=== PATIENT | female | born 1975 | race Hispanic/Latino ===

== ENCOUNTER 2018-09-22 06:13 | Emergency (ER) | payer SELFPAY ==
[2018-09-22] MEDS ORDERED: ASPIRIN 81 MG CHEWABLE TABLET ONE (06:52)
[2018-09-22] MEDS ORDERED: KETOROLAC 30 MG/ML INJ ONE (06:53)
[2018-09-22 07:04] LABS: Absolute Lymphocytes (CBC) 1.6 K/uL (0.7-4.9); Absolute Monocytes 0.4 K/uL (0.1-1.3); Absolute Neutrophil 4.3 K/uL (1.8-8.0); Basophils % 0.6 % (0-1.3); Eosinophils % 1.3 % (0-4.4); Hematocrit 37.2 % (36.0-45.0); Lymphocytes % 25.3 % (15.3-44.8); MPV 10.3 fL (7.6-11.3); Monocytes % 5.9 % (3.3-12.3); RBC Red Blood Cell Count 4.19 M/uL (3.86-4.86)
--- NOTE | 2018-09-22 07:04 | RAD REPORT ---
EXAM DESCRIPTION: RAD - Chest Single View - 09/22/2018 6:53 am CLINICAL HISTORY: Chest pain radiating to the left COMPARISON: None. TECHNIQUE: AP portable chest image was obtained 0646 hours . FINDINGS: Lungs are clear. Heart and vasculature are normal. No measurable pleural effusion and no p neumothorax. No acute bony abnormality seen. No acute aortic findings suspected. IMPRESSION: No acute cardiopulmonary process.
[2018-09-22 07:07] LABS: Protime INR 1.1
[2018-09-22 07:23] LABS: ALT/SGPT 22 U/L (12-78); AST/SGOT 14 U/L (15-37); Albumin 3.5 g/dL (3.4-5.0); Alkaline Phosphatase 94 U/L (45-117); BUN Blood Urea Nitrogen 9 mg/dL (7-18); Bicarbonate 27 mmol/L (21-32); Bilirubin Direct 0.1 mg/dL (0-0.2); Bilirubin Total 0.3 mg/dL (0.2-1.0); Glucose Level 110 mg/dL (74-106); Magnesium 2.2 mg/dL (1.8-2.4); NT PRO-BNP 58 pg/mL (<125); Potassium 3.9 mmol/L (3.5-5.1); Protein, Total 7.4 g/dL (6.4-8.2); Sodium Level 141 mmol/L (136-145); Troponin (Emerg Dept Use Only) < 0.02 ng/mL (0.0-0.045)
--- NOTE | 2018-09-22 08:07 | EKG ---
Test Date: 2018-09-22 Test Time: 06:30:01 Novelty Balloon Assembler And Packer: DONNY MEASUREMENT RESULTS: Intervals: Rate: 59 MN: 170 QRSD: 72 QT: 394 QTc: 390 [place]: P: 62 MN: 170 QRS: 45 T: 34 INTERPRETIVE STATEMENTS: Sinus bradycardia with sinus arrhythmia Otherwise normal ECG No previous ECG available for comparison Electronically Signed On 09-22-18 08:06:32 CUSTOMER EQUIPMENT ENGINEER by Chad Vasques
[2018-09-22 09:19] LABS: Urine Blood 1+ (NEG); Urine Glucose NEGATIVE (NEG); Urine Protein NEGATIVE (NEG); Urine Specific Gravity 1.015 (1.005-1.030); Urine pH 7.5 (5.0-7.0)
[2018-09-22 10:02] LABS: Barbiturates NEGATIVE (NEGATIVE); Benzodiazepines NEGATIVE (NEGATIVE); Cocaine NEGATIVE (NEGATIVE); METHAMPHETAM NEGATIVE (NEGATIVE); Methadone NEGATIVE (NEGATIVE); Opiates NEGATIVE (NEGATIVE); Phencyclidine NEGATIVE (NEGATIVE); THC Cannibis POSITIVE (NEGATIVE)
--- NOTE | 2018-09-22 10:54 | ER ---
Nurse's Notes [facility] Name: Veronica Giles Age: 42 yrs Sex: Female : 1975 Arrival Date: 09/22/2018 Time: 06:13 Bed 17 Private MD: Diagnosis: Other chest pain;Elevated blood-pressure reading, without diagnosis of hypertension Presentation: 09/22 06:20 Presenting complaint: Patient states: Woke up with chest pain around 0200, chest pain tl2 radiates to left side neck, back and arm. Reports shortness of breath when pain starts. Denies nausea or vomiting. Transition of care: patient was not received from another setting of care. Onset of symptoms was September 22, 2018 at 02:00. Risk Assessment: Do you want to hurt yourself or someone else? Patient reports no desire to harm self or others. Initial Sepsis Screen: Does the patient meet any 2 criteria? No. Patient's initial sepsis screen is negative. Does the patient have a suspected source of infection? No. Patient's initial sepsis screen is negative. Care prior to arrival: None. 06:20 Method Of Arrival: Ambulatory tl2 06:20 Acuity: TREY 3 tl2 Triage Assessment: 06:22 General: Appears in no apparent distress. uncomfortable, Behavior is calm, cooperative, tl2 appropriate for age. Pain: Complains of pain in anterior aspect of left upper chest and mid-sternal area Pain radiates to neck, back and left arm Pain currently is 8 out of 10 on a pain scale. Quality of pain is described as pressure, Pain began 4 hours ago. Is intermittent. Neuro: Level of Consciousness is awake, alert, obeys commands, Oriented to person, place, time, situation. Cardiovascular: Chest pain is described as diffuse, quality is pressure, is located in left chest wall radiates to left arm(s) back neck. Respiratory: Airway is patent Respiratory effort is even, unlabored, Respiratory pattern is regular, symmetrical. Respiratory: Reports shortness of breath. GI: Patient currently denies nausea, vomiting. : No signs and/or symptoms were reported regarding the genitourinary system. Derm: Skin is pink, warm \T\ dry. IS PROJECT MANAGER: 06:22 LMP 09/22/2018 tl2 Historical: - Allergies: 06:22 No Known Allergies; tl2 - Home Meds: 06:22 None [Active]; tl2 - PMHx: 06:22 None; tl2 - PSHx: 06:22 ; tl2 - Immunization history:: Adult Immunizations up to date. - Social history:: Smoking status: Patient/guardian denies using tobacco. - Ebola Screening: : No symptoms or risks identified at this time. Screenin:24 Abuse screen: Denies threats or abuse. Nutritional screening: No deficits noted. tl2 Tuberculosis screening: No symptoms or risk factors identified. Fall Risk None identified. Assessment: 06:22 General: see triage assessment. cc3 07:02 Reassessment: RECD REPORT FROM NIRALI FRANCOIS. 42YO HM P/W CP/SOB. ALL CURRENT ORDERS bp COMPLETE, RESULTS PENDING FOR DISPO. 09:09 Reassessment: ALL CURRENT ORDERS COMPLETED, NO ACUTE S/S AT THIS TIME. RESULTS PENDING. bp Vital Signs: 06:22 BP 157 / 82; Pulse 69; Resp 18; Temp 98.2(O); Pulse Ox 100% on R/A; Weight 96.16 kg; tl2 Height 5 ft. 2 in. (157.48 cm); Pain 8/10; 08:09 BP 136 / 79; Pulse 63; Resp 17; Temp 97.9(O); Pulse Ox 100% on R/A; mh5 08:24 BP 142 / 92 LA; Pulse 69; Resp 18; Pulse Ox 98% on R/A; mh5 08:24 BP 135 / 104 RA; Pulse 71; Resp 18; Pulse Ox 100% on R/A; mh5 11:17 BP 132 / 80; Pulse 69; Resp 16; Temp 98.0; Pulse Ox 99% on R/A; Pain 3/10; ls4 06:22 Body Mass Index 38.77 (96.16 kg, 157.48 cm) tl2 ED Course: 06:13 Patient arrived in ED. am2 06:15 Adams Sheffield PA is PHCP. cp 06:15 Adams Dickens MD is Attending Physician. cp 06:22 Triage completed. tl2 06:22 Arm band placed on right wrist. tl2 06:24 Patient has correct armband on for positive identification. Bed in low position. Call tl2 light in reach. Side rails up X 1. Adult w/ patient. Pulse ox on. NIBP on. 06:24 Patient maintains SpO2 saturation greater than 95% on room air. tl2 06:45 Inserted saline lock: 20 gauge in right antecubital area, using aseptic technique. cc3 Blood collected. 06:52 X-ray completed. Portable x-ray completed in exam room. Patient tolerated procedure kw well. 06:53 XRAY Chest (1 view) In Process Unspecified. EDMS 07:00 Report given to RN Ulices. cc3 07:02 Ulices Cruz, RN is Primary Nurse. bp 10:21 EKG done, by development technician. reviewed by Adams HOGAN. at1 11:18 No provider procedures requiring assistance completed. Patient did not have IV access ls4 during this emergency room visit. intact, bleeding controlled, No redness/swelling at site. Pressure dressing applied. Administered Medications: 06:44 Drug: Aspirin Chewable Tablet 324 mg Route: PO; cc3 06:56 Follow up: Response: No adverse reaction cc3 06:55 Drug: TORadol 30 mg Route: IVP; Site: right antecubital; cc3 07:00 Follow up: Response: No adverse reaction cc3 Outcome: 10:53 Discharge ordered by MD. cp 11:18 Discharged to home ambulatory, with family. ls4 11:18 Condition: stable 11:18 Discharge instructions given to patient, family, Instructed on discharge instructions, follow up and referral plans. no driving heavy equipment, Demonstrated understanding of instructions, follow-up care, medications, Prescriptions given X 1. 11:19 Patient left the ED. ls4 Signatures: Dispatcher [employer] EDAK Maritza Jefferson Amanda, jewish history professor EKG Tat1 Adams Sheffield PA PA Sonya Sierra, RN RN tl2 Cynthia Olsen Marisa Ayala am2 Ulices Cruz, RN RN bp Nirali Rosales cc3 Lyn Gonzalez, RN RN ls4
--- NOTE | 2018-09-22 10:54 | EDPHYS ---
Physician Documentation [facility] Name: Veronica Giles Age: 42 yrs Sex: Female : 1975 Arrival Date: 09/22/2018 Time: 06:13 Bed 17 Private MD: ED Adams Calle HPI: 09/22 06:28 This 42 yrs old Female presents to ER via Ambulatory with complaints of Chest cp Pain, Shortness Of Breath, L Side Pain. 06:29 The patient or guardian reports chest pain that is located primarily in the anterior cp chest wall, left. Onset: this morning, at 02:00. The pain radiates to the left arm, the left shoulder, left jaw. The chest pain is described as a pressure, tightness. Duration: The patient or guardian reports multiple episodes, that wax and wane. 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 - Social history:: Smoking status: Patient/guardian denies using tobacco. - Ebola Screening: : No symptoms or risks identified at this time. ROS: 06:30 Constitutional: Negative for body aches, chills, fever, poor PO intake. cp 06:30 Eyes: Negative for injury, pain, redness, and discharge. cp 06:30 ENT: Negative for drainage from ear(s), ear pain, sore throat, difficulty swallowing, difficulty handling secretions. 06:30 Cardiovascular: Positive for chest pain, Negative for edema, palpitations. 06:30 Respiratory: Positive for shortness of breath, Negative for cough, wheezing. 06:30 Abdomen/GI: Negative for abdominal pain, nausea, vomiting, and diarrhea, black/tarry stool, rectal bleeding. 06:30 : Negative for urinary symptoms. 06:30 MS/extremity: Positive for pain, of the left shoulder and left arm, Negative for injury or acute deformity, decreased range of motion, paresthesias. 06:30 Skin: Negative for cellulitis, rash. 06:30 Neuro: Negative for altered mental status, dizziness, syncope, near syncope, weakness. 06:30 All other systems are negative. Exam: 06:31 ECG was reviewed by the Attending Physician. cp 06:35 Constitutional: The patient appears in no acute distress, alert, awake, cp non-diaphoretic, non-toxic, well developed, well nourished, uncomfortable. 06:35 Head/Face: Normocephalic, atraumatic. Eyes: Pupils equal round and reactive to light, cp extra-ocular motions intact. Lids and lashes normal. Conjunctiva and sclera are non-icteric and not injected. Cornea within normal limits. Periorbital areas with no swelling, redness, or edema. ENT: Nares patent. No nasal discharge, no septal abnormalities noted. Tympanic membranes are normal and external auditory canals are clear. Oropharynx with no redness, swelling, or masses, exudates, or evidence of obstruction, uvula midline. Mucous membranes moist. Neck: Trachea midline, no thyromegaly or masses palpated, and no cervical lymphadenopathy. Supple, full range of motion without nuchal rigidity, or vertebral point tenderness. No Meningismus. 06:35 Chest/axilla: Inspection: normal, Palpation: crepitus, is not appreciated, tenderness, that is moderate, of the anterior aspect of left upper chest and mid-sternal area, that partially reproduces the patient's complaints. 06:35 Cardiovascular: Rate: normal, Rhythm: regular, Heart sounds: murmur, not appreciated, rub, not appreciated, gallop, not appreciated, Edema: is not appreciated, JVD: is not appreciated. 06:35 Respiratory: the patient does not display signs of respiratory distress, Respirations: normal, no use of accessory muscles, no retractions, no splinting, no tachypnea, labored breathing, is not present, Breath sounds: are clear throughout, no decreased breath sounds, no stridor, no wheezing. 06:35 Abdomen/GI: Inspection: abdomen appears normal, Bowel sounds: active, all quadrants, Palpation: abdomen is soft and non-tender, in all quadrants, rebound tenderness, is not appreciated, voluntary guarding, is not appreciated, involuntary guarding, is not appreciated. 06:35 Back: pain, is absent, ROM is normal. 06:35 Skin: cellulitis, is not appreciated, no rash present. 06:35 Neuro: Orientation: to person, place \T\ time. Mentation: is normal, Cerebellar function: is grossly normal, Motor: moves all fours, strength is normal, Sensation: is normal. 10:20 ECG was reviewed by the Attending Physician. cp Vital Signs: 06:22 BP 157 / 82; Pulse 69; Resp 18; Temp 98.2(O); Pulse Ox 100% on R/A; Weight 96.16 kg; tl2 Height 5 ft. 2 in. (157.48 cm); Pain 8/10; 08:09 BP 136 / 79; Pulse 63; Resp 17; Temp 97.9(O); Pulse Ox 100% on R/A; mh5 08:24 BP 142 / 92 LA; Pulse 69; Resp 18; Pulse Ox 98% on R/A; mh5 08:24 BP 135 / 104 RA; Pulse 71; Resp 18; Pulse Ox 100% on R/A; mh5 11:17 BP 132 / 80; Pulse 69; Resp 16; Temp 98.0; Pulse Ox 99% on R/A; Pain 3/10; ls4 06:22 Body Mass Index 38.77 (96.16 kg, 157.48 cm) tl2 MDM: 06:15 Patient medically screened. haja 10:52 The patient was given aspirin in the Emergency Department. cp 10:52 Differential diagnosis: abnormal EKG, acute myocardial infarction, acute pericarditis, cp chest wall pain, cholecystitis, Cholelithiasis costochondritis, gastroesophageal reflux disease (GERD), pancreatitis, pericarditis, pleurisy, pneumonia, pulmonary embolus, stable angina, unstable angina. Data reviewed: vital signs, nurses notes, lab test result(s), EKG, radiologic studies, CT scan, plain films. Test interpretation: by ED physician or midlevel provider: ECG, plain radiologic studies. Counseling: I had a detailed discussion with the patient and/or guardian regarding: the historical points, exam findings, and any diagnostic results supporting the discharge/admit diagnosis, the presence of at least one elevated blood pressure reading (>120/80) during this emergency department visit, lab results, radiology results, the need for outpatient follow up, a family practitioner, to return to the emergency department if symptoms worsen or persist or if there are any questions or concerns that arise at home. Response to treatment: the patient's symptoms have markedly improved after treatment. Special discussion: Based on the patient's history, exam, and Dx evaluation, there is no indication for emergent intervention or inpatient Tx. It is understood by the patient/guardian that if the Sx's persist or worsen they need to return immediately for re-evaluation. 09/22 06:23 Order name: Basic Metabolic Panel; Complete Time: 07:31 cp 02/ 07:31 Interpretation: Normal except: GLUC 110; GFR 81. cp 09/22 06:23 Order name: CBC with Diff; Complete Time: 07:22 cp 09/22 07:22 Interpretation: Normal except: RDW 16.5. cp 09/22 06:23 Order name: LFT's; Complete Time: 07:31 cp 09/22 07:32 Interpretation: Normal except: AST 14; GLOB 3.9; A/G 0.9. cp 09/22 06:23 Order name: Magnesium; Complete Time: 07:31 cp 09/22 07:32 Interpretation: MG 2.2; Reviewed. cp 09/22 06:23 Order name: NT PRO-BNP; Complete Time: 07:31 cp 09/22 07:32 Interpretation: Within normal limits: NT PRO-BNP 58. cp 09/22 06:23 Order name: PT-INR; Complete Time: 07:31 cp 09/22 06:23 Order name: Troponin (emerg Dept Use Only); Complete Time: 07:31 cp 09/22 07:32 Interpretation: Reviewed. cp 09/22 06:23 Order name: XRAY Chest (1 view); Complete Time: 07:22 cp 09/22 07:22 Interpretation: Report review. cp 09/22 06:28 Order name: D-Dimer; Complete Time: 07:56 cp 09/22 08:18 Order name: UDS; Complete Time: 10:16 cp 09/22 08:58 Order name: Urine Dipstick--Ancillary (enter results); Complete Time: 10:16 eb 09/22 08:58 Order name: Urine --Ancillary (enter results); Complete Time: 10:16 eb 09/22 09:46 Order name: Troponin (emerg Dept Use Only); Complete Time: 10:51 cp 09/22 10:51 Interpretation: Reviewed. cp 09/22 06:23 Order name: Urine Test (obtain specimen); Complete Time: 09:00 cp 09/22 06:23 Order name: Urine Dipstick-Ancillary (obtain specimen); Complete Time: 09:00 cp 09/22 06:23 Order name: EKG; Complete Time: 06:24 cp 09/22 06:23 Order name: Cardiac monitoring; Complete Time: 06:56 cp 09/22 06:23 Order name: EKG - Nurse/Tech; Complete Time: 06:31 cp 09/22 06:23 Order name: IV Saline Lock; Complete Time: 06:57 cp 09/22 06:23 Order name: Labs collected and sent; Complete Time: 06:57 cp 09/22 06:23 Order name: O2 Per Protocol; Complete Time: 06:31 cp 09/22 06:23 Order name: O2 Sat Monitoring; Complete Time: 06:31 cp 09/22 07:57 Order name: Blood Pressure Recheck: bilateral upper extremity; Complete Time: 08:36 cp 09/22 09:46 Order name: EKG - Nurse/Tech; Complete Time: 10:08 cp 09/22 09:46 Order name: EKG; Complete Time: 09:47 cp 09/22 09:46 Order name: Repeat Cardiac Enzymes at: 1000; Complete Time: 10:08 cp EC:31 Rate is 59 beats/min. Rhythm is regular. MA interval is normal. QRS interval is normal. cp QT interval is normal. T waves are Normal. Interpreted by me. Reviewed by me. 10:20 Rate is 57 beats/min. Rhythm is regular. MA interval is normal. QRS interval is normal. cp QT interval is normal. Interpreted by me. Reviewed by me. Administered Medications: 06:44 Drug: Aspirin Chewable Tablet 324 mg Route: PO; cc3 06:56 Follow up: Response: No adverse reaction cc3 06:55 Drug: TORadol 30 mg Route: IVP; Site: right antecubital; cc3 07:00 Follow up: Response: No adverse reaction cc3 Disposition: 11:57 Co-signature as Attending Physician, Adams Dickens MD I agree with the assessment and haja plan of care. Disposition: 09/22/18 10:53 Discharged to Home. Impression: Other chest pain, Elevated blood-pressure reading, without diagnosis of hypertension. - Condition is Stable. - Discharge Instructions: Nonspecific Chest Pain, Chest Wall Pain, How to Take Your Blood Pressure, [id number], Aspirin and Your Heart, Form - Blood Pressure Record Sheet. - Prescriptions for Diclofenac Sodium 75 mg Oral Tablet, Delayed Release (E.C.) - take 1 tablet by ORAL route 2 times per day As needed; 20 tablet. - Medication Reconciliation Form, Thank You Letter, Antibiotic Education, Prescription Opioid Use, Work release form form. - Follow up: Private Physician; When: 2 - 3 days; Reason: Recheck today's complaints. - Problem is new. - Symptoms have improved. Signatures: Dispatcher [employer] EDAdams Hernandez MD MD cha Page, Corey, PA PA cp Sonya Sauer, RN RN tl2 Nirali Rosales 3 Lyn Gonzalez, RN RN ls4 Corrections: (The following items were deleted from the chart) 11:19 10:53 09/22/2018 10:53 Discharged to Home. Impression: Other chest pain; Elevated ls4 blood-pressure reading, without diagnosis of hypertension. Condition is Stable. Forms are Medication Reconciliation Form, Thank You Letter, Antibiotic Education, Prescription Opioid Use. Follow up: Private Physician; When: 2 - 3 days; Reason: Recheck today's complaints. Problem is new. Symptoms have improved. cp
--- NOTE | 2018-09-22 11:52 | EKG ---
Test Date: 2018-09-22 Test Time: 10:15:30 Silviculture Teacher: SOPHIE MEASUREMENT RESULTS: Intervals: Rate: 57 IA: 160 QRSD: 90 QT: 404 QTc: 393 [place]: P: 55 IA: 160 QRS: 43 T: 34 INTERPRETIVE STATEMENTS: Sinus bradycardia with sinus arrhythmia Otherwise normal ECG Compared to ECG 09/22/2018 06:30:01 No significant changes Electronically Signed On 09-22-18 11:51:29 BACTERIOLOGIST PHARMACEUTICAL by Chad Vasques
== END 2018-09-22 11:19 | disposition home or self-care (01) ==
LOC: ER 06:13
DX: R03.0 Elevated blood-pressure reading, without diagnosis of hypertension (principal)
CPT/HCPCS: 36415; 71045; 80048; 80076; 80307; 81003; 81025; 83735; 83880; 84484; 85025; 85379; 85610; 93005; 96374; 99285

== ENCOUNTER 2023-01-05 11:18 | Emergency (ER) | payer SELFPAY ==
[2023-01-05] MEDS ORDERED: NA CHLORIDE 0.9% 1,000 ML ONE (11:45)
[2023-01-05] MEDS ORDERED: dexAMETHasone 10 MG/ML VIAL ONE (11:45)
[2023-01-05 11:52] LABS: Hematocrit 42.2 % (36.0-45.0); Lymphocytes % 8.1 % (15.3-44.8); MPV 9.9 fL (7.6-11.3); RBC Red Blood Cell Count 4.54 M/uL (3.86-4.86)
--- NOTE | 2023-01-05 12:58 | RAD REPORT ---
EXAM DESCRIPTION: CT - Soft Tissue Neck W/Contr CLINICAL HISTORY: Sore throat;Swelling COMPARISON: No comparisons TECHNIQUE: Thin axial CT images of the neck, performed following intravenous administration of 100 mL Isovue-300. Multiplanar reformats were generated and reviewed. All CT scans are performed using dose optimization technique as appropriate and may include automated exposure control or mA/KV adjustment according to patient size. FINDINGS: Mucosal hyperenhancement with symmetric submucosal edema involving the nasopharynx, with m ucosal hyperenhancement extending along the palatine tonsils and uvula, without significant swelling. No appreciable fluid collections. Mild narrowing of the nasopharyngeal airway. Parapharyngeal fat triangles are symmetric. Tongue base structures are normal. Epiglottis and aryepiglottic folds are normal. Piriform sinuses are well aerated. The vocal cords are normal in appearance. Salivary glands are normal in appearance. No suspicious adenopathy throughout the neck. Upper lung perales are clear. Included intracranial contents are unremarkable. IMPRESSION: Nonspecific inflammatory changes along the nasopharyngeal and upper oropharyngeal mucosa l spaces as above, suggesting nonspecific pharyngitis. No appreciable adenopathy, masses, or deep spa ce infectious process.
--- NOTE | 2023-01-05 13:16 | ER ---
Nurse's Notes [facility] Name: Veronica Giles Age: 47 yrs Sex: Female : 1975 Arrival Date: 01/05/2023 Time: 11:18 Bed 20 Private MD: Diagnosis: Acute pharyngitis, unspecified Presentation: 01/05 11:27 Chief complaint: Patient states: my throat hurts, can't swallow or drink, stated last iw night, fever yesterday , jordan ears hurt also when she tries to talk. Coronavirus screen: At this time, the client does not indicate any symptoms associated with coronavirus-19. Ebola Screen: Patient negative for fever greater than or equal to 101.5 degrees Fahrenheit, and additional compatible Ebola Virus Disease symptoms Patient denies exposure to infectious person. Patient denies travel to an Ebola-affected area in the 21 days before illness onset. No symptoms or risks identified at this time. Initial Sepsis Screen: Does the patient meet any 2 criteria? No. Patient's initial sepsis screen is negative. Does the patient have a suspected source of infection? No. Patient's initial sepsis screen is negative. Risk Assessment: Do you want to hurt yourself or someone else? Patient reports no desire to harm self or others. Onset of symptoms was January 04, 2023. 11:27 Method Of Arrival: Ambulatory iw 11:27 Acuity: TREY 3 iw ETHANOL OPERATIONS MANAGER: 11:29 LMP N/A - Post-menopause iw Historical: - Allergies: 11:28 No Known Allergies; iw - Home Meds: 11:28 None [Active]; iw - PMHx: 11:28 None; iw - PSHx: 11:28 section; iw - Immunization history:: Client reports having NOT received the Covid vaccine. - Social history:: Smoking status: Patient reports the use of cigarette tobacco products. Screenin:46 [facility] ED Fall Risk Assessment (Adult) History of falling in the last 3 months, ko1 including since admission No falls in past 3 months (0 pts) Confusion or Disorientation No (0 pts) Intoxicated or Sedated No (0 pts) Impaired Gait No (0 pts) Mobility Assist Device Used No (0 pt) Altered Elimination No (0 pt) Score/Fall Risk Level 0 - 2 = Low Risk Oriented to surroundings, Maintained a safe environment, Educated pt \T\ family on fall prevention, incl call for assistance when getting out of bed, Assessed \T\ reinforced patient's understanding of fall precautions, Provided non-skid footwear, Hourly rounding (assess needs \T\ fall precautionary measures) done, Used ambulatory aids as needed (educated on \T\ assisted with), Used gait belt as appropriate. Abuse screen: Denies threats or abuse. Denies injuries from another. Nutritional screening: No deficits noted. Tuberculosis screening: No symptoms or risk factors identified. Assessment: 11:46 General: Appears in no apparent distress. uncomfortable, ill, Behavior is calm, ko1 cooperative, appropriate for age. Pain: Complains of pain in sore throat. Neuro: No deficits noted. Cardiovascular: No deficits noted. Respiratory: Airway is patent Respiratory effort is even, unlabored, Breath sounds are clear bilaterally. GI: No deficits noted. : No deficits noted. EENT: Throat is reddened with gag reflex present. Derm: No deficits noted. Musculoskeletal: No deficits noted. Vital Signs: 11:27 BP 134 / 96; Pulse 105; Resp 16; Temp 98.5; Pulse Ox 97% on R/A; Weight 99.79 kg; iw Height 5 ft. 3 in. ; 13:17 BP 128 / 92; Pulse 101; Resp 16; Pulse Ox 99% ; ko1 11:27 Body Mass Index 38.97 (99.79 kg, 160.02 cm) iw ED Course: 11:22 Patient arrived in ED. kj1 11:23 Ccei Sena FNP is PSYCHIATRICP. jh7 11:23 Adams Dickens MD is Attending Physician. jh7 11:28 Triage completed. iw 11:28 Arm band placed on. iw 11:32 Jennifer Presley, ALESSANDRO is Primary Nurse. ko1 11:37 Strep Sent. ko1 11:43 Inserted saline lock: 20 gauge in right forearm, using aseptic technique. Blood zm collected. 11:43 BMP Sent. zm 11:43 CBC with Diff Sent. zm 11:46 Patient has correct armband on for positive identification. Bed in low position. Call ko1 light in reach. Side rails up X 1. Pulse ox on. NIBP on. Door closed. Noise minimized. Lights dimmed. Warm blanket given. 11:46 No provider procedures requiring assistance completed. ko1 12:21 CT Soft Tissue Neck W/contr In Process Unspecified. EDMS 13:17 IV discontinued, intact, bleeding controlled, No redness/swelling at site. Pressure ko1 dressing applied. 13:18 Throat Culture Sent. ko1 Administered Medications: 11:44 Drug: Decadron - Dexamethasone IVP 10 mg Route: IVP; Site: right antecubital; ko1 13:18 Follow up: Response: No adverse reaction ko1 11:44 Drug: NS 0.9% IV 1000 ml Route: IV; Rate: 1 bolus; Site: right antecubital; ko1 13:18 Follow up: IV Status: Completed infusion; IV Intake: 1000ml ko1 Medication: 11:46 VIS not applicable for this client. ko1 Intake: 13:18 IV: 1000ml; Total: 1000ml. ko1 Outcome: 13:15 Discharge ordered by . napoleon 13:19 Discharged to home ambulatory. ko1 13:19 Condition: stable 13:19 Discharge instructions given to patient, Instructed on discharge instructions, follow up and referral plans. medication usage, Demonstrated understanding of instructions, follow-up care, medications, Prescriptions given X 2. 13:24 Patient left the ED. ko1 Signatures: Dispatcher [employer] EDMS Alexa Galvan, RN RN Cindy Lujan1 Cheri Olsen Jennifer, OPTICAL ASSISTANT OPTICAL ASSISTANT [facility] Jennifer Presley, ALESSANDRO RN ko1
--- NOTE | 2023-01-05 13:16 | EDPHYS ---
Physician Documentation [facility] Name: Veronica Giles Age: 47 yrs Sex: Female : 1975 Arrival Date: 01/05/2023 Time: 11:18 Bed 20 Private MD: KASIE Physician Adams Dickens HPI: 01/05 11:30 This 47 yrs old Female presents to ER via Ambulatory with complaints of jh7 Difficulty Swallowing, Sore Throat. 11:30 The patient presents with sore throat, dysphagia, of both solids and liquids. The jh7 patient describes throat pain as constant, raw. Onset: The symptoms/episode began/occurred yesterday. Associated signs and symptoms: Pertinent positives: chills, fever, Sore throat Pertinent negatives chest pain, shortness of breath, vomiting. 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 - Social history:: Smoking status: Patient reports the use of cigarette tobacco products. ROS: 11:30 Eyes: Negative for injury, pain, redness, and discharge, Cardiovascular: Negative for jh7 chest pain, palpitations, and edema, Respiratory: Negative for shortness of breath, cough, wheezing, and pleuritic chest pain, Abdomen/GI: Negative for abdominal pain, nausea, vomiting, diarrhea, and constipation, Back: Negative for injury and pain, MS/Extremity: Negative for injury and deformity, Skin: Negative for injury, rash, and discoloration, Neuro: Negative for headache, weakness, numbness, tingling, and seizure. 11:30 Constitutional: Positive for chills, fever. 11:30 ENT: Positive for difficulty swallowing, sore throat. 11:30 All other systems are negative. Exam: 11:30 Eyes: Pupils equal round and reactive to light, extra-ocular motions intact. Lids and jh7 lashes normal. Conjunctiva and sclera are non-icteric and not injected. Cornea within normal limits. Periorbital areas with no swelling, redness, or edema. Neck: Trachea midline, no thyromegaly or masses palpated, and no cervical lymphadenopathy. Supple, full range of motion without nuchal rigidity, or vertebral point tenderness. No Meningismus. Cardiovascular: Regular rate and rhythm with a normal S1 and S2. No gallops, murmurs, or rubs. Normal PMI, no JVD. No pulse deficits. Respiratory: Lungs have equal breath sounds bilaterally, clear to auscultation and percussion. No rales, rhonchi or wheezes noted. No increased work of breathing, no retractions or nasal flaring. Abdomen/GI: Soft, non-tender, with normal bowel sounds. No distension or tympany. No guarding or rebound. No evidence of tenderness throughout. Skin: Warm, dry with normal turgor. Normal color with no rashes, no lesions, and no evidence of cellulitis. MS/ Extremity: Pulses equal, no cyanosis. Neurovascular intact. Full, normal range of motion. Neuro: Awake and alert, GCS 15, oriented to person, place, time, and situation. Motor strength 5/5 in all extremities. Sensory grossly intact. Normal gait. 11:30 Constitutional: The patient appears alert, awake, in obvious pain. 11:30 ENT: TM's: are normal, Nose: is normal, Posterior pharynx: Tonsils: bilaterally enlarged, with erythema, Uvula: normal, midline, swelling, that is moderate, erythema, that is moderate, pooling of secretions, that are mild. Vital Signs: 11:27 BP 134 / 96; Pulse 105; Resp 16; Temp 98.5; Pulse Ox 97% on R/A; Weight 99.79 kg; iw Height 5 ft. 3 in. ; 13:17 BP 128 / 92; Pulse 101; Resp 16; Pulse Ox 99% ; ko1 11:27 Body Mass Index 38.97 (99.79 kg, 160.02 cm) iw MDM: 11:23 Patient medically screened. [facility] 13:07 Differential diagnosis: apthous stomatitis, group A strep tonsillitis, milo's angina, jh7 peritonsillar abscess pharyngitis, retropharyngeal abcess uvulitis, viral syndrome. Data reviewed: vital signs, nurses notes, lab test result(s), radiologic studies, CT scan. I considered the following discharge prescriptions or medication management in the emergency department Medications were administered in the Emergency Department. See MAR. Counseling: I had a detailed discussion with the patient and/or guardian regarding: the historical points, exam findings, and any diagnostic results supporting the discharge/admit diagnosis, to return to the emergency department if symptoms worsen or persist or if there are any questions or concerns that arise at home. Response to treatment: the patient's symptoms have markedly improved after treatment. 01/05 11:30 Order name: CBC with Diff; Complete Time: 12:15 [facility] 01/05 11:30 Order name: BMP; Complete Time: 12:41 [facility] 01/05 11:30 Order name: Strep [facility] 01/05 12:12 Order name: Throat Culture [facility] 01/05 11:30 Order name: CT Soft Tissue Neck W/contr; Complete Time: 13:05 [facility] Administered Medications: 11:44 Drug: Decadron - Dexamethasone IVP 10 mg Route: IVP; Site: right antecubital; ko1 13:18 Follow up: Response: No adverse reaction ko1 11:44 Drug: NS 0.9% IV 1000 ml Route: IV; Rate: 1 bolus; Site: right antecubital; ko1 13:18 Follow up: IV Status: Completed infusion; IV Intake: 1000ml ko1 Disposition Summary: 01/05/23 13:15 Discharge Ordered Location: Home [facility] Problem: new [facility] Symptoms: have improved [facility] Condition: Stable [facility] Diagnosis - Acute pharyngitis, unspecified [facility] Followup: [facility] - With: Private Physician - When: 2 - 3 days - Reason: Recheck today's complaints Discharge Instructions: - Discharge Summary Sheet [facility] - Pharyngitis [facility] - Strep Throat, Adult [facility] Forms: - Medication Reconciliation Form [facility] - Thank You Letter [facility] - Antibiotic Education [facility] Prescriptions: - Augmentin 875-125 mg Oral Tablet - take 1 tablet by ORAL route every 12 hours for 10 days; 20 tablet; Refills: 0, [facility] Product Selection Permitted - Prednisone 20 mg Oral Tablet - take 2 tablets by ORAL route once daily for 5 days; 10 tablet; Refills: 0, [facility] Product Selection Permitted Signatures: [facility] Alexa Williamson RN RN Ceci Sena FNP [place] [id number] Jennifer Presley RN RN ko1
[2023-01-05 13:35] VITALS: TEMP 98.5
[2023-01-05 13:36] VITALS: BP 128/92; O2SAT 99
== END 2023-01-05 13:24 | disposition home or self-care (01) ==
LOC: ER 11:18
DX: J02.9 Acute pharyngitis, unspecified (principal)
CPT/HCPCS: 36415; 70491; 80048; 85025; 87070; 87081; J1100; J7030; Q9967